=== PATIENT | male | born 1945 | race Caucasian/White ===

== ENCOUNTER 2022-09-15 14:59 | Emergency (ER) | payer MEDICARE, OTHER ==
[2022-09-15] MEDS ORDERED: Sodium Chloride 0.9% 10 ML Syringe FLUSH PRN (16:02)
[2022-09-15 16:16] LABS: BASOPHILS PERCENT AUTO 0.6 % (0.0-1.0); EOSINOPHILS PERCENT AUTO 1.2 % (1.0-3.0); LYMPHOCYTES PERCENT AUTO 18.8 % (20.5-50.1); MEAN CORPUSCULAR HEMOGLOBIN 32.3 pg (27.0-34.0); MEAN CORPUSCULAR HGB CONC 33.3 g/dL (33.0-35.0); NEUTROPHILS PERCENT AUTO 68.4 % (42.2-75.2); PLATELET COUNT,PLT 295 10^3/uL (150-450); RED BLOOD CELL COUNT 4.64 10^6/uL (4.6-6.2); WHITE BLOOD CELL COUNT,WBC 7.3 10^3/uL (5.0-10.0)
[2022-09-15 16:40] LABS: A/G RATIO 1.2; ALBUMIN 3.6 g/dL (3.4-5.0); ANION GAP 8.4 mEq/L (7-13); BILIRUBIN TOTAL 0.5 mg/dL (0.2-1.0); BUN/CREATININE RATIO 12.9 (No establ ref range); CALCIUM 8.4 mg/dL (8.5-10.1); CREATININE 1.16 mg/dL (0.70-1.30); EST CRCL DRUG DOSING (CG) 53.23 mL/min; POTASSIUM,K 3.4 mmol/L (3.5-5.1); PROTEIN TOTAL,TP 6.7 g/dL (6.4-8.2)
[2022-09-15] MEDS ORDERED: Metoprolol Succinate 50 MG Tab.ER PO ONE (17:36)
== END 2022-09-15 18:07 | disposition home or self-care (01) ==
LOC: DL.ED 14:59
DX: M54.50 Low back pain, unspecified (principal); E87.1 Hypo-osmolality and hyponatremia; R07.89 Other chest pain; Z76.0 Encounter for issue of repeat prescription
CPT/HCPCS: 36415; 71046; 72070; 80053; 83880; 84484; 85025; 93005; 99284; A9270; J3490

== ENCOUNTER 2023-06-04 12:39 | Emergency (ER) | payer OTHER ==
[2023-06-04 13:56] LABS: BASOPHILS PERCENT AUTO 0.7 % (0.0-1.0); EOSINOPHILS PERCENT AUTO 2.1 % (1.0-3.0); HEMOGLOBIN 15.5 g/dL (14.0-18.0); LYMPHOCYTES PERCENT AUTO 16.5 % (20.5-50.1); MEAN CORPUSCULAR VOLUME 97.1 fL (80-100); MONOCYTES PERCENT AUTO 9.1 % (2-8); NEUTROPHILS PERCENT AUTO 71.6 % (42.2-75.2); PLATELET COUNT,PLT 382 10^3/uL (150-450); RED BLOOD CELL COUNT 4.84 10^6/uL (4.6-6.2); WHITE BLOOD CELL COUNT,WBC 8.8 10^3/uL (5.0-10.0)
[2023-06-04 14:20] LABS: ALBUMIN 3.7 g/dL (3.4-5.0); ANION GAP 10.1 mEq/L (7-13); BLOOD UREA NITROGEN,BUN 14 mg/dL (7-18); BUN/CREATININE RATIO 13.1 (No establ ref range); CALCIUM 8.7 mg/dL (8.5-10.1); CARBON DIOXIDE,CO2 32 mmol/L (21-32); CHLORIDE,CL 101 mmol/L (98-107); CREATININE 1.07 mg/dL (0.70-1.30); EST CRCL DRUG DOSING (CG) 58.73 mL/min; GLUCOSE RANDOM 101 mg/dL (70-99); MAGNESIUM 2.1 mg/dL (1.8-2.4); POTASSIUM,K 4.1 mmol/L (3.5-5.1); SODIUM,NA 139 mmol/L (136-145)
[2023-06-04 14:26] LABS: PROTHROMBIN TIME 10.3 SEC (9.0-12.0); PTT,PARTIAL THROMBOPLSTIN TIME 26.7 SEC (22.0-34.0)
[2023-06-04 14:31] LABS: APPEARANCE,URINE CLEAR (CLEAR); BILIRUBIN,URINE NEGATIVE (NEGATIVE); COLOR,URINE YELLOW (YELLOW); GLUCOSE,URINE NEGATIVE (NEGATIVE); KETONES,URINE NEGATIVE (NEGATIVE); LEUKOCYTE ESTERASE,URINE NEGATIVE (NEGATIVE); NITRITE,URINE NEGATIVE (NEGATIVE); OCCULT BLOOD,URINE NEGATIVE (NEGATIVE); PROTEIN,URINE NEGATIVE (NEGATIVE); UROBILINOGEN,URINE 0.2 mg/dL (0.2-1.0)
[2023-06-04 14:35] LABS: AMPHETAMINES,URINE NEGATIVE (NEGATIVE); BARBITURATES,URINE NEGATIVE (NEGATIVE); BENZODIAZEPINE,URINE NEGATIVE (NEGATIVE); MDMA (ECSTASY), URINE NEGATIVE (NEGATIVE); METHADONE,URINE NEGATIVE (NEGATIVE); METHAMPHETAMINES,URINE NEGATIVE (NEGATIVE); OPIATES,URINE NEGATIVE (NEGATIVE); OXYCODONE,URINE NEGATIVE (NEGATIVE); PHENCYCLIDINE,URINE NEGATIVE (NEGATIVE); TCA,URINE NEGATIVE (NEGATIVE)
[2023-06-04 14:42] LABS: ALANINE AMINOTRANSFERASE,ALT 21 U/L (16-63); ALKALINE PHOSPHATASE 76 U/L (46-116); ASPARTATE AMNIOTRANSFERASE,AST 13 U/L (15-37); BILIRUBIN TOTAL 0.6 mg/dL (0.2-1.0); C-REACTIVE PROTEIN 2.11 ng/dL (<=0.50); PROTEIN TOTAL,TP 7.4 g/dL (6.4-8.2); TSH ULTRASENSITIVE 1.11 uIU/mL (0.36-3.74)
[2023-06-04 14:52] LABS: ESTIMATED GFR 72 mL/min (>=60)
[2023-06-04 14:53] LABS: ETHANOL BLOOD MEDICAL < 3 mg/dL (0)
[2023-06-04 15:06] LABS: CORONAVIRUS COVID-19 NAA NEGATIVE (NEGATIVE); INFLUENZA A NAA NEGATIVE (NEGATIVE); INFLUENZA B NAA NEGATIVE (NEGATIVE); RESPIRATORY SYNCYTIAL VIR NAA NEGATIVE (NEGATIVE)
[2023-06-04] MEDS: Sodium Chloride 0.9% 10 ML Syringe FLUSH PRN (15:13)
== END 2023-06-04 15:50 | disposition home or self-care (01) ==
LOC: DL.ED 12:39
DX: J01.00 Acute maxillary sinusitis, unspecified (principal); R00.8 Other abnormalities of heart beat; R55 Syncope and collapse; I10 Essential (primary) hypertension; E78.00 Pure hypercholesterolemia, unspecified; Z79.899 Other long term (current) drug therapy
CPT/HCPCS: 0241U; 36415; 70450; 80053; 80305; 80307; 81003; 83605; 83735; 84145; 84443; 84484; 85025; 85610; 85730; 86140; 93005; 93010; 99284; J3490

== ENCOUNTER 2025-03-07 15:25 | Emergency (ER) | payer OTHER ==
[2025-03-07] MEDS ORDERED: Sodium Chloride 0.9% 10 ML Syringe FLUSH PRN (15:45)
[2025-03-07 16:16] LABS: PLATELET COUNT,PLT 196 10^3/uL (150-450); RED BLOOD CELL COUNT 4.50 10^6/uL (4.6-6.2); WHITE BLOOD CELL COUNT,WBC 10.3 10^3/uL (5.0-10.0)
[2025-03-07 16:19] LABS: BASOPHILS PERCENT AUTO 0.2 % (0.0-1.0); EOSINOPHILS PERCENT AUTO 0.3 % (1.0-3.0); LYMPHOCYTES PERCENT AUTO 9.4 % (20.5-50.1); MONOCYTES PERCENT AUTO 15.6 % (2-8); NEUTROPHILS PERCENT AUTO 74.5 % (42.2-75.2)
[2025-03-07] MEDS: fentaNYL 100 MCG/2 ML SDV IVPUSH ONE ×2 (16:30→18:38)
[2025-03-07 16:45] LABS: A/G RATIO 0.9; ALANINE AMINOTRANSFERASE,ALT 69.0 U/L (16-63); ASPARTATE AMNIOTRANSFERASE,AST 82.0 U/L (15-37); BILIRUBIN TOTAL 1.2 mg/dL (0.2-1.0); BLOOD UREA NITROGEN,BUN 25.0 mg/dL (7-18); CARBON DIOXIDE,CO2 33.0 mmol/L (21-32); CHLORIDE,CL 100.0 mmol/L (98-107); CREATININE 1.99 mg/dL (0.70-1.30); EST CRCL DRUG DOSING (CG) 31.09 mL/min; GLUCOSE RANDOM 143.0 mg/dL (70-99); POTASSIUM,K 4.4 mmol/L (3.5-5.1); PROTEIN TOTAL,TP 7.1 g/dL (6.4-8.2); SODIUM,NA 141.0 mmol/L (136-145)
[2025-03-07 16:52] LABS: ESTIMATED GFR 34.0 mL/min (>=60); LACTIC ACID 2.1 mmol/L (0.4-2.0)
[2025-03-07 17:06] LABS: APPEARANCE,URINE CLEAR (CLEAR); GLUCOSE,URINE NEGATIVE (NEGATIVE); OCCULT BLOOD,URINE TRACE-INTACT (NEGATIVE)
[2025-03-07] MEDS: Heparin Sodium 5,000 Units/ML Vial IVPUSH ONE (17:13)
[2025-03-07] MEDS: Heparin Sodium/0.45% NaCl 25,000 UNITS/500 ML BAG IV SCH (17:13)
[2025-03-07] MEDS: Heparin Sodium 5,000 Units/ML Vial SUBCUT ONE (17:29)
[2025-03-07 17:33] LABS: EPITHELIAL CELLS,URINE FEW /HPF (NOT SEEN)
[2025-03-07] MEDS: Iopamidol 755 Mg/ML 100 ML Bottle IVPUSH ONE (17:59)
[2025-03-07 18:01] LABS: LYMPHOCYTES PERCENT MAN 10 % (20-50); MONOCYTES PERCENT MAN 13 % (2-8); SEG NEUTROPHILS PERCENT MAN 77 % (42-75)
== END 2025-03-07 20:58 ==
LOC: DL.ED 15:25
DX: I26.99 Other pulmonary embolism without acute cor pulmonale (principal); I48.91 Unspecified atrial fibrillation; E78.00 Pure hypercholesterolemia, unspecified; I10 Essential (primary) hypertension; Z79.899 Other long term (current) drug therapy
CPT/HCPCS: 36415; 71045; 71275; 80053; 81001; 83605; 83735; 83880; 84145; 84484; 85025; 85379; 85730; 86140; 87086; 87428; 93005; 93010; 96365; 96366; 96375; 96376; 99285; J1644; J3010; J7030; Q9967